=== PATIENT | male | born 1970 | race Caucasian/White ===

== ENCOUNTER 2025-01-16 04:39 | Inpatient (IN) | payer OTHER ==
[~2025-01-16] VITALS: Ht 177.8 cm; Wt 89.4 kg
[2025-01-16] MEDS ORDERED: ONDANSETRON 4 MG/2 ML VIAL IV PRN (06:00)
[2025-01-16 06:39] VITALS: BP 145/86; TEMP 99.1; O2SAT 93
[2025-01-16] MEDS: PANTOPRAZOLE SODIUM 40 MG TABLET.DR PO SCH (10:07)
[2025-01-16 10:44] LABS: PLATELET COUNT (AUTO) 203 K/uL (152-348); RED BLOOD CELL COUNT(AUTO) 4.66 MIL/uL (4.06-5.63); RED CELL DISTRIBUTION WIDTH 14.0 % (12.1-16.2); WHITE BLOOD COUNT (AUTO) 11.1 K/uL (3.6-10.2)
[2025-01-16] MEDS ORDERED: CLOZ100T32 PO (11:23)
[2025-01-16] MEDS ORDERED: DIVA500T54 PO (11:23)
[2025-01-16] MEDS ORDERED: FLUV150C2 PO (11:23)
[2025-01-16] MEDS ORDERED: LORA-258 PO (11:25)
[2025-01-16 11:55] LABS: ASPARTATE AMINOTRANSFERASE 2112 U/L (15-37); CREATININE 2.8 mg/dL (0.6-1.3); SODIUM SERUM 143 mmol/L (136-145); TOTAL PROTEIN, SERUM 5.8 g/dL (6.4-8.2); UREA NITROGEN, BLOOD 28 mg/dL (7-18)
[2025-01-16 12:00] VITALS: BP 137/85; TEMP 98.6; O2SAT 95
[2025-01-16 14:06] LABS: CREATINE KINASE, TOTAL > 14000 U/L (39-308)
[2025-01-16] MEDS ORDERED: DIVALPROEX ER 500 MG TAB.SR.24H PO SCH (15:00)
[2025-01-16] MEDS: FLUVOXAMINE MALEATE 50 MG TABLET PO SCH (15:32)
[2025-01-16] MEDS: IV NS 1000 ML 1,000 ML IV PRN (15:33)
[2025-01-16 16:04] VITALS: BP 148/48; TEMP 97.3; O2SAT 95
[2025-01-16] MEDS: GUAIFENESIN/DEXTROMETHORPHAN 5 ML UDC PO PRN (16:14)
[2025-01-16] MEDS: TRAMADOL HCL 50 MG TABLET PO PRN (16:14)
[2025-01-16] MEDS: CLOZAPINE 100 MG TABLET PO SCH (16:57)
[2025-01-16 18:20] LABS: *BILIRUBIN,URIN NEGATIVE (NEGATIVE); *BLOOD, URINE 3+ (NEGATIVE); *CLARITY,URINE CLOUDY (CLEAR); *COLOR,URINE AMBER (YELLOW); *KETONES,URINE NEGATIVE (NEGATIVE); *PROTEIN,URINE 2+ (NEGATIVE); *UROBILINOGEN,URINE 0.2 E.U./dl (NORMAL); LEUKOCYTE ESTERASE ,URINE NEGATIVE (NEGATIVE); NITRITE, URINE NEGATIVE (NEGATIVE); UGLUCOSE NEGATIVE (NEGATIVE)
[2025-01-16 18:30] LABS: *CREATININE,URINE 82.9 mg/dL (30-125); *SODIUM RNDM,URINE 23.0 mmol/L (40-220); *URINE TOTAL PROTEIN RANDOM 145.6 mg/dL (<150/24HR); SQUAMOUS EPITHELIAL CELL,UR FEW /HPF (NONE SEEN)
[2025-01-16 19:40] VITALS: BP_SYST 121; BP_SYST 154; BP_DIAS 43; BP_DIAS 92; TEMP 98.7; O2SAT 91
[2025-01-16] MEDS ORDERED: FLUVOXAMINE MALEATE PO SCH (21:00)
[2025-01-16] MEDS: GABAPENTIN 100 MG CAPSULE PO SCH (21:02)
[2025-01-16 22:00] VITALS: BP 135/62
[2025-01-17] MEDS: AZITHROMYCIN IV 500 MG in IV DEXTROSE 5% 250 ML IV SCH (04:40)
[2025-01-17] MEDS ORDERED: AZITHROMYCIN IV 250 MG in IV DEXTROSE 5% 250 ML IV SCH (05:00)
[2025-01-17 06:07] VITALS: BP 134/82; TEMP 98.6; O2SAT 95
[2025-01-17 07:42] LABS: PLATELET COUNT (AUTO) 194 K/uL (152-348); RED BLOOD CELL COUNT(AUTO) 4.38 MIL/uL (4.06-5.63); RED CELL DISTRIBUTION WIDTH 14.2 % (12.1-16.2); WHITE BLOOD COUNT (AUTO) 11.1 K/uL (3.6-10.2)
[2025-01-17 08:11] LABS: ASPARTATE AMINOTRANSFERASE 1150 U/L (15-37); CREATININE 3.7 mg/dL (0.6-1.3); SODIUM SERUM 143 mmol/L (136-145); TOTAL PROTEIN, SERUM 5.6 g/dL (6.4-8.2); UREA NITROGEN, BLOOD 33 mg/dL (7-18)
[2025-01-17 11:26] LABS: CREATINE KINASE, TOTAL > 14000 U/L (39-308)
[2025-01-17 11:31] VITALS: BP 141/85; TEMP 97.7; O2SAT 93
[2025-01-17 15:33] VITALS: BP 129/73; TEMP 98; O2SAT 93
[2025-01-17] MEDS: BENZONATATE 100 MG CAPSULE PO SCH (15:47)
[2025-01-17] MEDS: LACTULOSE 20 G/30 ML LIQUID UDC PO SCH (18:24)
[2025-01-17 19:19] VITALS: BP 143/86; TEMP 98.3; O2SAT 92
[2025-01-17] MEDS: LORAZEPAM 0.5 MG TABLET PO PRN (20:38)
[2025-01-18 05:37] VITALS: BP 145/86; TEMP 99.5; O2SAT 92
[2025-01-18 06:11] LABS: PTH, INTACT 51 pg/mL (15-65)
[2025-01-18 07:03] LABS: PLATELET COUNT (AUTO) 205 K/uL (152-348); RED BLOOD CELL COUNT(AUTO) 4.27 MIL/uL (4.06-5.63); RED CELL DISTRIBUTION WIDTH 14.2 % (12.1-16.2); WHITE BLOOD COUNT (AUTO) 8.3 K/uL (3.6-10.2)
[2025-01-18 07:04] LABS: CREATININE 3.7 mg/dL (0.6-1.3); SODIUM SERUM 145.0 mmol/L (136-145); UREA NITROGEN, BLOOD 29.0 mg/dL (7-18)
[2025-01-18 11:31] VITALS: BP 125/65; TEMP 99.2; O2SAT 92
[2025-01-18 15:43] VITALS: BP 132/79; TEMP 98.3; O2SAT 94
[2025-01-18 19:20] VITALS: BP 158/97; TEMP 98.8; O2SAT 97
[2025-01-19 06:48] LABS: PLATELET COUNT (AUTO) 203 K/uL (152-348); RED BLOOD CELL COUNT(AUTO) 4.60 MIL/uL (4.06-5.63); RED CELL DISTRIBUTION WIDTH 14.1 % (12.1-16.2); WHITE BLOOD COUNT (AUTO) 9.8 K/uL (3.6-10.2)
[2025-01-19 07:14] LABS: ASPARTATE AMINOTRANSFERASE 377 U/L (15-37); CREATININE 3.4 mg/dL (0.6-1.3); SODIUM SERUM 144 mmol/L (136-145); TOTAL PROTEIN, SERUM 5.0 g/dL (6.4-8.2); UREA NITROGEN, BLOOD 27 mg/dL (7-18)
[2025-01-19 07:45] LABS: CREATINE KINASE, TOTAL > 14000 U/L (39-308)
[2025-01-19 11:58] VITALS: BP 127/73; TEMP 98; O2SAT 94
[2025-01-19 16:25] VITALS: BP 136/82; TEMP 98.4; O2SAT 94
[2025-01-19 19:00] VITALS: BP 140/60; TEMP 98.1; O2SAT 94
[2025-01-20 06:00] VITALS: BP 149/85; TEMP 98; O2SAT 95
[2025-01-20 06:28] LABS: PLATELET COUNT (AUTO) 161 K/uL (152-348); RED BLOOD CELL COUNT(AUTO) 4.55 MIL/uL (4.06-5.63); RED CELL DISTRIBUTION WIDTH 13.9 % (12.1-16.2); WHITE BLOOD COUNT (AUTO) 12.3 K/uL (3.6-10.2)
[2025-01-20 06:53] LABS: CREATINE KINASE, TOTAL 6803.0 U/L (39-308); CREATININE 3.0 mg/dL (0.6-1.3); SODIUM SERUM 145.0 mmol/L (136-145); UREA NITROGEN, BLOOD 24.0 mg/dL (7-18)
[2025-01-20] MEDS: MAGNESIUM OXIDE 400 MG TABLET PO ONE (08:19)
[2025-01-20 12:05] VITALS: BP 124/64; TEMP 97.9; O2SAT 99
[2025-01-20 15:32] VITALS: BP 149/83; TEMP 98; O2SAT 95
[2025-01-20 21:47] VITALS: BP 138/81; TEMP 98.1; O2SAT 91
[2025-01-21 05:50] VITALS: BP 142/80; TEMP 98.2; O2SAT 92
[2025-01-21 06:46] LABS: PLATELET COUNT (AUTO) 168 K/uL (152-348); RED BLOOD CELL COUNT(AUTO) 3.98 MIL/uL (4.06-5.63); RED CELL DISTRIBUTION WIDTH 13.9 % (12.1-16.2); WHITE BLOOD COUNT (AUTO) 11.1 K/uL (3.6-10.2)
[2025-01-21 07:19] LABS: ASPARTATE AMINOTRANSFERASE 171.0 U/L (15-37); CREATINE KINASE, TOTAL 4327.0 U/L (39-308); CREATININE 2.5 mg/dL (0.6-1.3); SODIUM SERUM 145.0 mmol/L (136-145); TOTAL PROTEIN, SERUM 4.5 g/dL (6.4-8.2); UREA NITROGEN, BLOOD 25.0 mg/dL (7-18)
[2025-01-21] MEDS ORDERED: GUAIFENESIN/DEXTROMETHORPHAN 5 ML UDC PO PRN (11:00)
[2025-01-21] MEDS: MAGNESIUM OXIDE 400 MG TABLET PO ONE (11:16)
[2025-01-21] MEDS: ENSURE WITH FIBER 237 ML LIQUID (CHOCOLATE) PO SCH (11:17)
[2025-01-21 11:19] VITALS: BP 134/93; TEMP 98.2; O2SAT 94
[2025-01-21 16:03] VITALS: BP 129/54; TEMP 98.2; O2SAT 94
[2025-01-21 19:00] VITALS: BP 155/83; TEMP 98.1; O2SAT 96
[2025-01-22 06:00] VITALS: BP 146/85; TEMP 98.9; O2SAT 100
[2025-01-22 09:07] LABS: PLATELET COUNT (AUTO) 194 K/uL (152-348); RED BLOOD CELL COUNT(AUTO) 4.14 MIL/uL (4.06-5.63); RED CELL DISTRIBUTION WIDTH 13.7 % (12.1-16.2); WHITE BLOOD COUNT (AUTO) 6.9 K/uL (3.6-10.2)
[2025-01-22 09:27] LABS: CREATINE KINASE, TOTAL 4947.0 U/L (39-308); CREATININE 2.4 mg/dL (0.6-1.3); SODIUM SERUM 144.0 mmol/L (136-145); UREA NITROGEN, BLOOD 23.0 mg/dL (7-18)
[2025-01-22 11:04] VITALS: BP 149/82; TEMP 98.6; O2SAT 97
[2025-01-22 15:02] VITALS: BP 133/68; TEMP 98.6; O2SAT 95
[2025-01-22] MEDS: MAGNESIUM OXIDE 400 MG TABLET PO ONE (16:09)
[2025-01-22 18:38] VITALS: TEMP 99.7; O2SAT 97
[2025-01-22 19:00] VITALS: BP 135/78; TEMP 101.1; O2SAT 100
[2025-01-22] MEDS: ACETAMINOPHEN 325 MG TABLET PO PRN (19:13)
[2025-01-23 06:00] VITALS: BP 142/79; TEMP 100.2; O2SAT 99
[2025-01-23 07:40] VITALS: TEMP 101.3
[2025-01-23] MEDS ORDERED: PIPERACILLIN SODIUM/TAZOBACTAM 3.375 G in IV DEXTROSE 5% 50 ML IV SCH (08:00)
[2025-01-23 08:11] LABS: PLATELET COUNT (AUTO) 180 K/uL (152-348); RED BLOOD CELL COUNT(AUTO) 3.58 MIL/uL (4.06-5.63); RED CELL DISTRIBUTION WIDTH 13.7 % (12.1-16.2); WHITE BLOOD COUNT (AUTO) 5.3 K/uL (3.6-10.2)
[2025-01-23 08:20] LABS: *BILIRUBIN,URIN NEGATIVE (NEGATIVE); *CLARITY,URINE CLEAR (CLEAR); *COLOR,URINE YELLOW (YELLOW); *KETONES,URINE NEGATIVE (NEGATIVE); *PROTEIN,URINE NEGATIVE (NEGATIVE); *UROBILINOGEN,URINE 0.2 E.U./dl (NORMAL); LEUKOCYTE ESTERASE ,URINE NEGATIVE (NEGATIVE); NITRITE, URINE NEGATIVE (NEGATIVE); UGLUCOSE NEGATIVE (NEGATIVE)
[2025-01-23 08:21] LABS: *BLOOD, URINE TRACE (NEGATIVE)
[2025-01-23 08:25] LABS: CREATININE 2.1 mg/dL (0.6-1.3); SODIUM SERUM 143.0 mmol/L (136-145); UREA NITROGEN, BLOOD 22.0 mg/dL (7-18)
[2025-01-23] MEDS ORDERED: CEFEPIME HCL 2 GM in IV DEXTROSE 5% 100 ML IV SCH ×3 (08:30→21:00)
[2025-01-23 08:33] LABS: ASPARTATE AMINOTRANSFERASE 198.0 U/L (15-37); CREATINE KINASE, TOTAL 3266.0 U/L (39-308); TOTAL PROTEIN, SERUM 5.2 g/dL (6.4-8.2)
[2025-01-23] MEDS: CEFEPIME HCL 2 GM in IV DEXTROSE 5% 100 ML IV SCH ×2 (08:57→23:25)
[2025-01-23] MEDS ORDERED: MAGNESIUM SULFATE/D5W 100 ML IV SCH (10:00)
[2025-01-23] MEDS ORDERED: VANCOMYCIN IV 1,250 MG in IV DEXTROSE 5% 250 ML IV ONE (10:00)
[2025-01-23] MEDS: IV NS 1000 ML 1,000 ML IV SCH (10:03)
[2025-01-23] MEDS: MAGNESIUM OXIDE 400 MG TABLET PO ONE (10:19)
[2025-01-23 10:52] LABS: HIV-1/2 ANTIBODY NON REACTIVE (NONREACTIVE)
[2025-01-23 11:05] VITALS: BP 137/67; TEMP 98.8; O2SAT 94
[2025-01-23 17:00] VITALS: BP 129/70; TEMP 99.5; O2SAT 96
[2025-01-23 19:00] VITALS: BP 163/85; TEMP 98.4; O2SAT 100
[2025-01-23] MEDS: VANCOMYCIN IV 1,250 MG in IV DEXTROSE 5% 250 ML IV ONE (20:29)
[2025-01-23] MEDS: ENOXAPARIN SODIUM 40 MG/0.4 ML DISP.SYRIN SQ SCH (20:39)
[2025-01-24 04:00] VITALS: BP 145/79; TEMP 98; O2SAT 96
[2025-01-24 06:47] LABS: PLATELET COUNT (AUTO) 200 K/uL (152-348); RED BLOOD CELL COUNT(AUTO) 3.76 MIL/uL (4.06-5.63); RED CELL DISTRIBUTION WIDTH 13.8 % (12.1-16.2); WHITE BLOOD COUNT (AUTO) 5.8 K/uL (3.6-10.2)
[2025-01-24 07:03] LABS: ASPARTATE AMINOTRANSFERASE 180.0 U/L (15-37); CREATININE 1.9 mg/dL (0.6-1.3); SODIUM SERUM 144.0 mmol/L (136-145); TOTAL PROTEIN, SERUM 5.6 g/dL (6.4-8.2); UREA NITROGEN, BLOOD 23.0 mg/dL (7-18)
[2025-01-24 11:39] VITALS: BP 136/82; TEMP 99; O2SAT 93
[2025-01-24] MEDS: POTASSIUM CHLORIDE 10 MEQ TAB.PRT.SR PO ONE (12:48)
[2025-01-24] MEDS: MAGNESIUM OXIDE 400 MG TABLET PO ONE (12:48)
[2025-01-24] MEDS: VANCOMYCIN IV 1,250 MG in IV DEXTROSE 5% 250 ML IV SCH (15:27)
[2025-01-24 16:00] VITALS: BP 142/83; TEMP 98.3; O2SAT 92
[2025-01-24 20:00] VITALS: BP 128/80; TEMP 99.5; O2SAT 93
[2025-01-25 05:00] VITALS: BP 124/67; TEMP 98.5; O2SAT 91
[2025-01-25 06:54] LABS: PLATELET COUNT (AUTO) 203 K/uL (152-348); RED BLOOD CELL COUNT(AUTO) 3.99 MIL/uL (4.06-5.63); RED CELL DISTRIBUTION WIDTH 14.0 % (12.1-16.2); WHITE BLOOD COUNT (AUTO) 5.8 K/uL (3.6-10.2)
[2025-01-25 07:29] LABS: CREATININE 1.7 mg/dL (0.6-1.3); SODIUM SERUM 147.0 mmol/L (136-145); UREA NITROGEN, BLOOD 24.0 mg/dL (7-18)
[2025-01-25 11:07] VITALS: BP 131/77; TEMP 98.2; O2SAT 86
[2025-01-25] MEDS: MAGNESIUM OXIDE 400 MG TABLET PO ONE (11:21)
[2025-01-25 11:30] VITALS: BP 131/77; TEMP 98.2; O2SAT 94
[2025-01-25 15:21] VITALS: BP 130/70; TEMP 98.5; O2SAT 95
[2025-01-25 19:35] VITALS: BP 149/87; TEMP 97.6; O2SAT 97
[2025-01-26 05:52] VITALS: BP 133/76; TEMP 97.6; O2SAT 92
[2025-01-26 06:44] LABS: PLATELET COUNT (AUTO) 170 K/uL (152-348); RED BLOOD CELL COUNT(AUTO) 4.17 MIL/uL (4.06-5.63); RED CELL DISTRIBUTION WIDTH 14.3 % (12.1-16.2); WHITE BLOOD COUNT (AUTO) 6.2 K/uL (3.6-10.2)
[2025-01-26 07:03] LABS: ASPARTATE AMINOTRANSFERASE 93.0 U/L (15-37); CREATININE 1.5 mg/dL (0.6-1.3); SODIUM SERUM 144.0 mmol/L (136-145); TOTAL PROTEIN, SERUM 6.1 g/dL (6.4-8.2); UREA NITROGEN, BLOOD 23.0 mg/dL (7-18)
[2025-01-26 10:07] LABS: A/G RATIO 1.0 (0.7-1.7); BETA GLOBULIN 0.9 g/dL (0.7-1.3); GLOBULIN, TOTAL 2.5 g/dL (2.2-3.9); M-SPIKE Not Observed g/dL (Not Observed); PROTEIN, TOTAL 5.1 g/dL (6.0-8.5)
[2025-01-27 06:36] VITALS: BP 106/70; TEMP 98.6; O2SAT 90
[2025-01-27 06:56] LABS: PLATELET COUNT (AUTO) 185 K/uL (152-348); RED BLOOD CELL COUNT(AUTO) 4.34 MIL/uL (4.06-5.63); RED CELL DISTRIBUTION WIDTH 13.9 % (12.1-16.2); WHITE BLOOD COUNT (AUTO) 6.4 K/uL (3.6-10.2)
[2025-01-27 07:20] LABS: ASPARTATE AMINOTRANSFERASE 94.0 U/L (15-37); CREATININE 1.5 mg/dL (0.6-1.3); SODIUM SERUM 144.0 mmol/L (136-145); TOTAL PROTEIN, SERUM 7.0 g/dL (6.4-8.2); UREA NITROGEN, BLOOD 22.0 mg/dL (7-18)
[2025-01-27] MEDS ORDERED: DEXA6TAB6 PO (10:27)
[2025-01-27] MEDS: DEXAMETHASONE SOD PHOSPHATE 4 MG INJ IV SCH (11:00)
== END 2025-01-27 12:25 | disposition home or self-care (01) | DRG 720 ==
LOC: MEDSURG3 05:24
PROVIDERS: ADMIT Registered Nurse Psychiatric/Mental Health; ATTEND Nurse Practitioner Acute Care
DX: A41.9 Sepsis, unspecified organism (principal); K76.7 Hepatorenal syndrome; N17.0 Acute kidney failure with tubular necrosis; G92.8 Other toxic encephalopathy; J15.69 Pneumonia due to other Gram-negative bacteria; M62.82 Rhabdomyolysis; E44.0 Moderate protein-calorie malnutrition; U07.1 COVID-19; R65.20 Severe sepsis without septic shock; R29.6 Repeated falls; F25.9 Schizoaffective disorder, unspecified; E88.09 Other disorders of plasma-protein metabolism, not elsewhere classified; E83.42 Hypomagnesemia; E86.9 Volume depletion, unspecified; R74.01 Elevation of levels of liver transaminase levels; G89.29 Other chronic pain; F41.9 Anxiety disorder, unspecified; R82.81 Pyuria; R79.89 Other specified abnormal findings of blood chemistry
CPT/HCPCS: 36415; 70450; 71045; 76705; 76770; 83605; 83735; 83970; 84100; 84155; 84165; 84300; 84443; 85025; 86140; 86803; 87040; 87086; 87806; 93005; 97535-GO-CO; A4663; A6213; G0378; J0456; J0692; J0696; J1650; J7040; J7050